=== PATIENT | male | born 1955 | race Caucasian/White ===

== ENCOUNTER 2017-02-17 07:50 | Day surgery (SDC) | payer BC ==
[~2017-02-17] VITALS: Ht 175.3 cm; Wt 107.7 kg
[2017-02-17] VITALS (7 sets, daily range): BP systolic 92–116; BP diastolic 59–74; PULSE 59–64; TEMP 97.8
[~2017-02-17 07:50] MED LIST: ALDACTONE 25MG25 MG PO; AMBIEN 10MG10 MG PO; AMLOPIDINE PO; ATIVAN 1MG T1 MG/TAB PO; ATIVAN PO; BUFFERED ASPIR325 M1 PO; BYSTOLIC PO; CALCIUM CARBONATE; CELEXA 20MG20 MG/TAB PO; CLOPIDOGREL PO; FISH OIL1 IU PO; HYGROTON25 MG PO; KLOR-CON 1010 MEQ PO; LABETALOL; LOTENSIN PO; NITROSTAT0.4 MG/TAB SL; NORVASC 10MG10 MG PO; PAXIL 20MG20 MG PO; TOPROL XL100 MG PO; ZOCOR 40MG40 MG PO; ZOCOR40 MG PO
[2017-02-17 08:33] LABS: POTASSIUM 3.5 mmol/L (3.4-5.0)
[2017-02-17 08:34] LABS: INR 1.5 (0.8-3.0); PROTHROMBIN TIME 16.6 SECONDS (9.7-12.8)
[2017-02-17] MEDS ORDERED: MULTAQ400 MG PO (08:54)
[2017-02-17] MEDS ORDERED: ASPIRIN 81M81 MG/TA2 PO (08:55)
[2017-02-17] MEDS ORDERED: NORVASC 10MG10 MG PO (08:56)
[2017-02-17] MEDS ORDERED: ELIQUIS 5MG PO (08:56)
[2017-02-17] MEDS ORDERED: LOTENSIN40 MG PO (08:57)
[2017-02-17] MEDS ORDERED: HYGROTON 2525 MG/TAB PO (08:58)
[2017-02-17] MEDS ORDERED: THE MEDICINE S200 M2 PO (08:58)
[2017-02-17] MEDS ORDERED: [UNRECOGNIZED DRUG - OTHER] PO (08:59)
[2017-02-17] MEDS ORDERED: TOPROL XL100 MG PO (09:00)
[2017-02-17] MEDS ORDERED: NITROSTAT0.4 MG/TAB SL (09:00)
[2017-02-17] MEDS ORDERED: ZOCOR 40MG40 MG PO (09:01)
[2017-02-17 09:08] LABS: THYROID STIMULATING HORMONE 0.82 uIU/mL (0.465-4.680)
== END 2017-02-17 12:00 | disposition home or self-care (01) ==
LOC: COL.CAR 07:50
PROVIDERS: Internal Medicine Cardiovascular Disease
DX: I48.0 Paroxysmal atrial fibrillation (principal); I48.92 Unspecified atrial flutter; I13.0 Hypertensive heart and chronic kidney disease with heart failure and stage 1 through stage 4 chronic kidney disease, or unspecified chronic kidney disease; N18.3 Chronic kidney disease, stage 3 (moderate); I50.9 Heart failure, unspecified; I25.2 Old myocardial infarction; E78.5 Hyperlipidemia, unspecified; Z95.5 Presence of coronary angioplasty implant and graft; Z90.49 Acquired absence of other specified parts of digestive tract; Z89.429 Acquired absence of other toe(s), unspecified side; Z79.01 Long term (current) use of anticoagulants; F17.210 Nicotine dependence, cigarettes, uncomplicated; Z80.9 Family history of malignant neoplasm, unspecified; E66.9 Obesity, unspecified; I08.1 Rheumatic disorders of both mitral and tricuspid valves
CPT/HCPCS: J2250; J3010; J7030

== ENCOUNTER 2018-06-02 00:51 | Inpatient (IN) | payer OTHER, MEDICAID ==
[2018-06-02] VITALS (992 sets, daily range): BP systolic 118–161; BP diastolic 58–98; PULSE 64–82; TEMP 97–99; O2SAT 84–100
[~2018-06-02] VITALS: Ht 177.8 cm; Wt 111.9 kg
[~2018-06-02 00:51] MED LIST changes: +ASPIRIN 81M81 MG/TA2 PO; +BETAPACE 80MG80 MG PO; +HYGROTON 2525 MG/TAB PO; +IMDUR 60MG60 MG/TAB PO; +ISORDIL 10MG10 MG PO; +K-DUR20 MEQ PO; +LASIX 40MG TABL40 MG PO; +LOTENSIN40 MG PO; +MAG-OX 400400 MG/TAB PO; +MULTAQ400 MG PO; +PACERONE100 MG PO; +PLAVIX 75MG TAB75 MG PO; +THE MEDICINE S200 M2 PO; +[UNRECOGNIZED DRUG - OTHER] PO
[2018-06-02 01:07] LABS: BASO % 0.5 % (0.0-2.0); EOS # 0.4 (0.0-0.7); EOS % 4.5 % (0-4.0); GRAN # 5.4 (1.4-6.5); GRAN % 61.7 % (42.2-75.2); HEMATOCRIT 41.3 % (42.0-52.0); HEMOGLOBIN 13.9 g/dl (13.5-18.0); INR 1.3 (0.8-3.0); LYMPH # 2.1 (1.2-3.4); LYMPH % 23.9 % (20.0-51.0); MEAN CELL VOLUME 96 fl (80.0-100.0); MEAN CORPUSCULAR HEMOGLOBIN 32 pg (27.0-31.0); MEAN CORPUSCULAR HGB CONC 34 g/dl (33.0-37.0); MEAN PLATELET VOLUME 9.7 fl (7.4-10.4); MONO # 0.8 (0.1-0.6); MONO % 9.3 % (1.7-9.3); PLATELET COUNT 208 K/mm3 (130-400); PROTHROMBIN TIME 14.9 SECONDS (9.7-12.8); REDCELL DISTRIBUTION WIDTH-CV 14.1 % (11.5-14.5)
[2018-06-02 01:11] LABS: ALANINE AMINOTRANSFERASE 36 U/L (21-72); ALBUMIN 3.8 gm/dL (3.5-5.0); ALCOHOL(ethanol),MEDICAL < 10 mg/dL; ALKALINE PHOSPHATASE 54 U/L (50-136); ANION GAP 5 mmol/L (7-16); AST,SGOT 21 U/L (15-37); BILIRUBIN,TOTAL 0.8 mg/dL (0.0-1.0); BLOOD UREA NITROGEN 20 mg/dL (9-20); CALCIUM 9.1 mg/dL (8.4-10.2); CARBON DIOXIDE 34 mmol/L (22-30); CHLORIDE 104 mmol/L (98-107); GLUCOSE 99 mg/dL (74-106); POTASSIUM 3.6 mmol/L (3.4-5.0); SODIUM 142 mmol/L (137-145); TOTAL PROTEIN 6.5 gm/dL (6.4-8.2)
[2018-06-02 01:30] LABS: TROPONIN-I 0.045 ng/mL (0.000-0.034)
[2018-06-02 01:52] LABS: PH 8 (5-8); SQUAMOUS EPITHELIAL None Seen /hpf; URINE APPEARANCE Clear; URINE BACTERIA None Seen /hpf; URINE BILIRUBIN Negative (NEGATIVE); URINE BLOOD Negative (NEGATIVE); URINE COLOR Yellow; URINE GLUCOSE Negative (NEGATIVE); URINE KETONE Negative (NEGATIVE); URINE LEUKOCYTE ESTERASE Negative (NEGATIVE); URINE NITRATE Negative (NEGATIVE); URINE PROTEIN(semi-quant) Negative (NEGATIVE); URINE RBC 0-2 /hpf; URINE UROBILINOGEN >=4.0 mg/dL (NEGATIVE); URINE WBC None Seen /hpf
[2018-06-02 02:12] LABS: COLLECTION METHOD CATHETER
[2018-06-02 05:41] LABS: ARTERIAL BLD GAS O2 SATURATION 92.6 % (92-100); ARTERIAL BLD GAS TCO2 CT 28.7; ARTERIAL BLOOD GAS BASE EXCESS 2.6 (-2-2); ARTERIAL BLOOD GAS HCO3 27.4 meq/L (22-26); ARTERIAL BLOOD GAS PCO2 42.9 mmHg (35-45); ARTERIAL BLOOD GAS PO2 66.1 mmHg (80-100); ARTERIAL BLOOD GAS pH 7.42 (7.35-7.45)
[2018-06-02 09:25] LABS: BASO % 0.2 % (0.0-2.0); EOS # 0.1 (0.0-0.7); EOS % 0.7 % (0-4.0); GRAN # 10.2 (1.4-6.5); GRAN % 84.4 % (42.2-75.2); HEMATOCRIT 38.9 % (42.0-52.0); HEMOGLOBIN 13.2 g/dl (13.5-18.0); LYMPH % 8.3 % (20.0-51.0); MEAN CELL VOLUME 96 fl (80.0-100.0); MEAN CORPUSCULAR HEMOGLOBIN 32 pg (27.0-31.0); MEAN CORPUSCULAR HGB CONC 34 g/dl (33.0-37.0); MEAN PLATELET VOLUME 9.7 fl (7.4-10.4); MONO # 0.7 (0.1-0.6); MONO % 6.2 % (1.7-9.3); PLATELET COUNT 195 K/mm3 (130-400); RED BLOOD COUNT 4.07 M/mm3 (4.20-5.60); REDCELL DISTRIBUTION WIDTH-CV 13.8 % (11.5-14.5)
[2018-06-02 09:36] LABS: CALCIUM 8.5 mg/dL (8.4-10.2); POTASSIUM 3.5 mmol/L (3.4-5.0)
[2018-06-02 11:13] LABS: ARTERIAL BLD GAS O2 SATURATION 95.2 % (92-100); ARTERIAL BLD GAS TCO2 CT 27.9; ARTERIAL BLOOD GAS BASE EXCESS 0.4 (-2-2); ARTERIAL BLOOD GAS HCO3 26.4 meq/L (22-26); ARTERIAL BLOOD GAS PCO2 48.1 mmHg (35-45); ARTERIAL BLOOD GAS PO2 82.3 mmHg (80-100); ARTERIAL BLOOD GAS pH 7.36 (7.35-7.45)
[2018-06-02 12:01] LABS: HEMATOCRIT 41.2 % (42.0-52.0); HEMOGLOBIN 13.8 g/dl (13.5-18.0)
[2018-06-02] MEDS ORDERED: ZYLOPRIM 100MG100 MG PO (13:17)
[2018-06-02] MEDS ORDERED: ELIQUIS 5MG PO (14:32)
[2018-06-02 18:02] LABS: PARTIAL THROMBOPLASTIN TIME 43.2 SECONDS (26.0-37.0)
[2018-06-03] VITALS (1169 sets, daily range): BP systolic 107–222; BP diastolic 59–98; PULSE 57–87; TEMP 98.1–100.2; O2SAT 49–100
[2018-06-03 04:49] LABS: ARTERIAL BLD GAS O2 SATURATION 98.6 % (92-100); ARTERIAL BLD GAS TCO2 CT 30.8; ARTERIAL BLOOD GAS BASE EXCESS 3.7 (-2-2); ARTERIAL BLOOD GAS HCO3 29.3 meq/L (22-26); ARTERIAL BLOOD GAS PCO2 48.2 mmHg (35-45)
[2018-06-03 04:51] LABS: ARTERIAL BLOOD GAS PO2 170.7 mmHg (80-100)
[2018-06-03 06:16] LABS: BASO % 0.2 % (0.0-2.0); EOS % 0.2 % (0-4.0); GRAN # 10.1 (1.4-6.5); GRAN % 81.2 % (42.2-75.2); HEMATOCRIT 38.8 % (42.0-52.0); HEMOGLOBIN 12.9 g/dl (13.5-18.0); LYMPH # 1.3 (1.2-3.4); LYMPH % 10.2 % (20.0-51.0); MEAN CELL VOLUME 97 fl (80.0-100.0); MEAN CORPUSCULAR HEMOGLOBIN 32 pg (27.0-31.0); MEAN CORPUSCULAR HGB CONC 33 g/dl (33.0-37.0); MEAN PLATELET VOLUME 9.7 fl (7.4-10.4); PLATELET COUNT 190 K/mm3 (130-400); RED BLOOD COUNT 4.01 M/mm3 (4.20-5.60); REDCELL DISTRIBUTION WIDTH-CV 14.3 % (11.5-14.5)
[2018-06-03 06:30] LABS: CALCIUM 8.4 mg/dL (8.4-10.2); CREATININE, serum 1.33 mg/dL (0.66-1.25); MAGNESIUM 1.8 mg/dL (1.6-2.3); PHOSPHOROUS 3.5 mg/dL (2.5-4.5); POTASSIUM 3.8 mmol/L (3.4-5.0)
[2018-06-03 09:15] LABS: PARTIAL THROMBOPLASTIN TIME 71.7 SECONDS (26.0-37.0)
[2018-06-03 09:21] LABS: SODIUM 139 mmol/L (137-145)
[2018-06-03 10:54] LABS: OSMOLALITY-SERUM 300 Osm/kg (275-300)
[2018-06-03 16:08] LABS: CALCIUM 8.7 mg/dL (8.4-10.2); CREATININE, serum 1.25 mg/dL (0.66-1.25); MAGNESIUM 1.7 mg/dL (1.6-2.3); PHOSPHOROUS 2.4 mg/dL (2.5-4.5); POTASSIUM 3.5 mmol/L (3.4-5.0)
[2018-06-03 18:11] LABS: PARTIAL THROMBOPLASTIN TIME 69.7 SECONDS (26.0-37.0)
== END 2018-06-04 13:10 | disposition expired | DRG 64 ==
LOC: COL.ER 00:51 → ICU 03:45
PROVIDERS: Emergency Medicine; Internal Medicine; Internal Medicine Pulmonary Disease; Nurse Practitioner; Psychiatry & Neurology Neurology
PROC: 5A1945Z Respiratory Ventilation, 24-96 Consecutive Hours (ICD-10-PCS; principal; 2018-06-02)
DX: I63.132 Cerebral infarction due to embolism of left carotid artery (principal); J96.01 Acute respiratory failure with hypoxia; G81.01 Flaccid hemiplegia affecting right dominant side; I13.0 Hypertensive heart and chronic kidney disease with heart failure and stage 1 through stage 4 chronic kidney disease, or unspecified chronic kidney disease; I50.32 Chronic diastolic (congestive) heart failure; Z66 Do not resuscitate; Z51.5 Encounter for palliative care; R47.01 Aphasia; R40.2422 Glasgow coma scale score 9-12, at arrival to emergency department; N18.3 Chronic kidney disease, stage 3 (moderate); R29.706 NIHSS score 6; I48.0 Paroxysmal atrial fibrillation; I25.10 Atherosclerotic heart disease of native coronary artery without angina pectoris; Z95.5 Presence of coronary angioplasty implant and graft; E78.5 Hyperlipidemia, unspecified; Z79.01 Long term (current) use of anticoagulants; F17.210 Nicotine dependence, cigarettes, uncomplicated; V49.40XA Driver injured in collision with unspecified motor vehicles in traffic accident, initial encounter
CPT/HCPCS: OP; 99233-AI; 99239; A9585; C1751; C1894; J0330; J1644; J1940; J2060; J2270; J2405; J2704; J3010; Q9967